=== PATIENT | female | born 1980 | race Caucasian/White ===

== ENCOUNTER 2017-11-26 10:02 | Emergency (ER) | payer OTHER ==
[2017-11-26 12:19] VITALS: BP 140/86
--- NOTE | 2017-11-26 12:37 | UC ---
Respiratory Complaint HPI - HPI Summary HPI Summary: 36 y/o female presents to the urgent care c/o dry cough, sinus congestion and AYALA for the past 2 weeks. Pt reports Symptoms started with a common cold. However sinus congestion has worsen w/ green nasal discharge, +PND, decrease appetite. AYALA is 5/10. Pt denies fever, SOB, chest pain, N/V/D, abdominal pain. - History of Current Complaint Chief Complaint: UCRespiratory Stated Complaint: AYALA, COUGH Time Seen by Provider: 11/26/17 12:16 Hx Obtained From: Patient Hx Last Menstrual Period: 11/19/17 ?: No Onset/Duration: Gradual Onset, Lasting Weeks - 2 weeks, Still Present, Worse Since - 2 days Timing: Constant Severity Initially: Mild Severity Currently: Moderate Pain Intensity: 5 Pain Scale Used: 0-10 Numeric Character: Cough: Productive, Sputum Description: - green Aggravating Factors: Recumbent Position Alleviating Factors: OTC Meds Associated Signs And Symptoms: Positive: URI, Nasal Congestion, Sinus Discomfort - Risk Factors Pulmonary Embolism Risk Factors: Negative Cardiac Risk Factors: Negative Pseudomonas Risk Factors: Negative Tuberculosis Risk Factors: Negative - Allergies/Home Medications Allergies/Adverse Reactions: Allergies Allergy/AdvReac Type Severity Reaction Status Date / Time No Known Allergies Allergy Verified 11/26/17 12:19 PMH/Surg Hx/FS Hx/Imm Hx Previously Healthy: Yes - Pt denies PMHX - Surgical History Surgical History: None - Family History Known Family History: Positive: None - Pt denies FMHX - Social History Occupation: Employed Full-time Lives: With Family Alcohol Use: Weekly Substance Use Type: None Smoking Status (MU): Never Smoked Tobacco - Immunization History Most Recent Influenza Vaccination: no Review of Systems Constitutional: Negative Skin: Negative Eyes: Negative ENT: Ear Ache - B/L ear pressure, Nasal Discharge, Sinus Congestion, Sinus Pain/ Tenderness Respiratory: Cough Cardiovascular: Negative Gastrointestinal: Negative Genitourinary: Negative Motor: Negative Neurovascular: Negative Musculoskeletal: Negative Neurological: Headache Psychological: Negative Is Patient Immunocompromised?: No All Other Systems Reviewed And Are Negative: Yes Physical Exam Triage Information Reviewed: Yes Vital Signs: Initial Vital Signs Temp 99.6 F 11/26/17 12:12 Pulse 77 11/26/17 12:12 Resp 14 11/26/17 12:12 BP 140/86 11/26/17 12:12 Pulse Ox 100 11/26/17 12:12 - Additional Comments Vitals: reviewed General: Well developed, well-nourished female patient with NAD. Head and face: Normocephalic and atraumatic, Positive tenderness over the frontal and maxillary sinuses.. Eyes: PERRLA, EOMI x 2. Normal conjunctiva. No eye discharge. ENT: Ears and TM with normal limits. Nose: with yellowish discharge and erythematous mucosa. Pharynx with erythema , no exudate. Neck: Supple, no JVD, no carotid bruits and no lymphadenopathy. Lungs: clear, no rales, no rhonchi, no wheezes. CVS: RRR, S1 and S2 present no murmurs or gallops appreciated. Abdomen: soft nontender with positive bowel sounds. Extremities: no edema noted. Neuro: WNL. Skin: warm and dry UC Diagnostic Evaluation - Laboratory O2 Sat by Pulse Oximetry: 100 Respiratory Course/Dx - Course Course Of Treatment: 36 y/o female presents to the urgent care c/o dry cough, sinus congestion and AYALA for the past 2 weeks. Pt reports Symptoms started with a common cold. However sinus congestion has worsen w/ green nasal discharge, + PND, decrease appetite. AYALA is 5/10. Pt denies fever, SOB, chest pain, N/V/D, abdominal pain. Hx obtained. Pt with acute sinusistis on examination. Pt with 2 weeks of symptoms getting worse. Pt Rx Amoxicillin PO and flonase nasal spray. Tessalon PO for cough. Discharge instructions explained to Pt. Advised to Return to the clinic or PCP if symptoms do not improve.Pt understood and agreed with plan of care. - Differential Dx/Diagnosis Differential Diagnosis/HQI/PQRI: Asthma, Bronchitis, Influenza, Laryngitis, Lower Resp Infection, Sinusitis Provider Diagnoses: 1- Acute bacteriral sinusitis. 2- Headache. 3- elevated BP w/ Hx of HTN Discharge - Discharge Plan Condition: Stable Disposition: HOME Prescriptions: Amoxicillin PO (*) [Amoxicillin 875 MG (*)] 875 mg PO BID #20 tab Fluticasone NASAL SPRAY 50MCG* [Flonase NASAL SPRAY 50MCG*] 2 spray BOTH NARES DAILY #1 btl Ibuprofen TAB* [Motrin TAB* 800 MG] 800 mg PO Q6H PRN #20 tab PRN Reason: Headache Patient Education Materials: Sinusitis (ED), Low Sodium Diet (ED) Referrals: [facility] [Outside] - 3 Days Additional Instructions: 1- Please increase fluid intake and rest. take full course of antibiotic to avoid resistance 2-Use Flonase as directed to help drain fluid. Also buy saline drops to clear sinuses 3-Take Ibuprofen PO q6-8hrs prn to alleviate Headache 4-Return to the clinic or PCP if symptoms do not improve for further management and treatment 5- Your BP is elevated today. please decrease salt in your diet, monitor BP and if it continues to be elevated please f/u with your PCP for further management
== END 2017-11-26 12:52 | disposition home or self-care (01) ==
LOC: UCCORT 10:02
DX: J01.90 Acute sinusitis, unspecified (principal); R51 Headache; R03.0 Elevated blood-pressure reading, without diagnosis of hypertension
CPT/HCPCS: 99202; G0463